=== PATIENT | female | born 1975 | race Caucasian/White ===

== ENCOUNTER 2021-01-24 07:19 | Outpatient (CLI) | payer OTHER, SELFPAY ==
[2021-01-24 08:21] LABS: Estradiol 247.2 pg/mL; Luteinizing Hormone 6.3 mIU/mL (0.5-41.7)
== END 2021-01-24 07:20 | disposition home or self-care (01) ==
PROVIDERS: Visit Provider Obstetrics & Gynecology
DX: N92.6 Irregular menstruation, unspecified (principal); E28.8 Other ovarian dysfunction
CPT/HCPCS: 36415; 82670; 83002; 84144

== ENCOUNTER 2021-04-09 07:22 | Outpatient (CLI) | payer OTHER, SELFPAY ==
[2021-04-09 08:32] LABS: Estradiol 18.9 pg/mL; Luteinizing Hormone 3.6 mIU/mL (0.5-41.7); Progesterone 0.446 ng/mL
== END 2021-04-09 07:23 | disposition home or self-care (01) ==
LOC: LAB 07:26
PROVIDERS: Visit Provider Obstetrics & Gynecology
DX: N92.6 Irregular menstruation, unspecified (principal); E28.8 Other ovarian dysfunction
CPT/HCPCS: 36415; 82670; 83002; 84144

== ENCOUNTER 2021-05-07 07:32 | Outpatient (CLI) | payer OTHER, SELFPAY | END 2021-05-07 07:33 | disposition home or self-care (01) | LOC: LAB 07:34 | PROVIDERS: Visit Provider Obstetrics & Gynecology | DX: Z32.00 Encounter for pregnancy test, result unknown (principal) | CPT/HCPCS: 36415; 84702 ==

== ENCOUNTER 2021-05-09 08:02 | Outpatient (CLI) | payer OTHER, SELFPAY | END 2021-05-09 08:03 | disposition home or self-care (01) | LOC: LAB 08:04 | PROVIDERS: Visit Provider Obstetrics & Gynecology | DX: Z32.00 Encounter for pregnancy test, result unknown (principal) | CPT/HCPCS: 36415; 84702 ==